=== PATIENT | male | born 1980 | race Caucasian/White ===

== ENCOUNTER 2017-03-01 19:42 | Emergency (ER) | payer MEDICAID ==
[~2017-03-01] VITALS: Ht 180.3 cm; Wt 91.0 kg
[2017-03-01 21:44] LABS: *AMPHETAMINES SCREEN URINE NEGATIVE (NEGATIVE); *BARBITURATES SCREEN URINE NEGATIVE (NEGATIVE); *BENZODIAZEPINES SCREEN URINE NEGATIVE (NEGATIVE); *COCAINE SCREEN URINE NEGATIVE (NEGATIVE); CANNABINOID URINE SCREEN NEGATIVE (NEGATIVE); ECSTASY MDMA SCREEN URINE NEGATIVE (NEGATIVE); METHADONE URINE SCREEN NEGATIVE (NEGATIVE); OPIATES URINE SCREEN NEGATIVE (NEGATIVE); PHENCYCLIDINE URINE SCREEN NEGATIVE (NEGATIVE)
[2017-03-01 21:52] VITALS: BP 128/77
== END 2017-03-01 21:55 | disposition home or self-care (01) ==
LOC: ER 19:48
DX: T50.901A Poisoning by unspecified drugs, medicaments and biological substances, accidental (unintentional), initial encounter (principal); Y92.89 Other specified places as the place of occurrence of the external cause; F17.200 Nicotine dependence, unspecified, uncomplicated; F20.9 Schizophrenia, unspecified
CPT/HCPCS: 80305; 99283